=== PATIENT | female | born 1970 | race American Indian/Alaskan Native ===

== ENCOUNTER 2017-03-08 13:47 | Emergency (ER) | payer SELFPAY ==
--- NOTE | 2017-03-08 15:18 | Emergency Department Report ---
Entered by CHRISTINA SALCIDO, acting as scribe for TAMIKA ASHRAF NP. Chief Complaint: Abdominal Pain Stated Complaint: ABD PAIN Time Seen by Provider: 03/08/17 15:12 - HPI History of Present Illness: 47 y/o non-toxic, non ill-appearing female in no acute distress presents to ED c /o RLQ abdominal pain since yesterday/ Describes her pain as sharp in quality, unsure if she is . Also reports missed menses for several months. Denies N/V/D, constipation, fever, chills, vaginal bleeding. Notes Hx of gestational induced hypertension. - ROS Review of Systems: + RLQ abdominal pain, missed menses - N/V/D, fever, chills, constipation - vaginal bleeding - Exam Vital Signs: Vital Signs 03/08/17 15:06 Temperature 98.4 F Pulse Rate 105 H Respiratory 20 Rate Blood Pressure 200/109 O2 Sat by Pulse 100 Oximetry Physical Exam: Abdomen: RLQ pain, no point tenderness, negative McBurney's point tenderness, negative yuan's sign, non-distended, bowel sounds normal x 4 MSE screening note: Focused history and physical exam performed. Due to findings the following was ordered: CBC, CMP, lipase, amylase, UA, hcg quantitative serum ED Disposition for MSE Condition: Stable Instructions: Abdominal Pain (ED) This documentation as recorded by the scribe,CHRISTINA SALCIDO,accurately reflects the service I personally performed and the decisions made by PASCALE oliveros MARTIN, ABDIRAHMAN.
[2017-03-08 15:36] LABS: Basophils % (Auto) 0.4 % (0.0-1.8); Eosinophils % (Auto) 1.1 % (0.0-4.3); Hematocrit 38.3 % (30.3-42.9); Hemoglobin 12.5 gm/dl (10.1-14.3); Mean Corpuscular HGB Conc 33 % (30-34); Mean Corpuscular Hemoglobin 28 pg (28-32); Mean Corpuscular Volume 86 fl (79-97); Platelet Count 271 K/mm3 (140-440); Red Blood Count 4.44 M/mm3 (3.65-5.03); Red Cell Distribution Width 13.6 % (13.2-15.2); White Blood Count 8.2 K/mm3 (4.5-11.0)
[2017-03-08 16:16] LABS: Alanine Aminotransferase 12 units/L (7-56); Albumin/Globulin Ratio 0.8 %; Alkaline Phosphatase 124 units/L (35-129); Amylase 50 units/L (27-131); BUN/Creatinine Ratio 18.88; Blood Urea Nitrogen 17 mg/dL (7-17); Carbon Dioxide 24 mmol/L (22-30); Glucose 278 mg/dL (65-100); Lipase 22 units/L (13-60); Total Protein 8.8 g/dL (6.3-8.2)
[2017-03-08 16:17] LABS: Anion Gap 21 mmol/L; Chloride 93.7 mmol/L (98-107); Potassium 4.9 mmol/L (3.6-5.0); Sodium 134 mmol/L (137-145)
[2017-03-08 19:53] LABS: Bilirubin,Urine NEG (Negative); Blood,Urine SM (Negative); Ketones,Urine NEG (Negative); Leukocyte Esterase,Urine MOD (Negative); Nitrite,Urine NEG (Negative); Urobilinogen,Urine < 2.0 mg/dL (<2.0)
[2017-03-08] MEDS ORDERED: MORPHINE IV ONE (19:57)
--- NOTE | 2017-03-08 19:59 | Emergency Department Report ---
HPI - General Chief Complaint: Abdominal Pain Time Seen by Provider: 03/08/17 19:32 - HPI HPI: This is a 47-year-old Afro-[place] female presents the emergency department with a 2 day history of lower abdominal discomfort. It is associated with some mild dysuria. She also has been having some nausea without vomiting. She took some Tylenol PM last night for her discomfort and so she could fall asleep but otherwise she is not taken anything else that has provided any relief. She denies any back pain, fever, vaginal bleeding or discharge. She also presents with very elevated blood pressure. She says she only has a history of hypertension when she was which has been many years in the past. She does not currently have a primary care doctor. She denies tobacco smoking. No recent travel or sick contacts at home. ED Past Medical Hx - Past Medical History Previous Medical History?: Yes Hx Hypertension: Yes (during ) - Surgical History Past Surgical History?: No - Social History Smoking Status: Current Every Day Smoker Substance Use Type: Alcohol - Medications Home Medications: Home Medications Medication Instructions Recorded Confirmed Last Taken Type HYDROcodone/APAP 5-325 [[place] 1 each PO Q6HR PRN #10 tablet 03/08/17 Unknown Rx 5/325] Nitrofurantoin [place]/M-Cryst 100 mg PO Q12HR #14 capsule 03/08/17 Unknown Rx [Macrobid CAP] amLODIPine [Norvasc] 5 mg PO DAILY #30 tab 03/08/17 Unknown Rx ED Review of Systems ROS: Stated complaint: ABD PAIN Other details as noted in HPI Comment: All other systems reviewed and negative Constitutional: denies: chills, fever Eyes: denies: eye pain, eye discharge, vision change ENT: denies: ear pain, throat pain Respiratory: denies: cough, shortness of breath, wheezing Cardiovascular: denies: chest pain, palpitations Gastrointestinal: abdominal pain, nausea. denies: vomiting Genitourinary: dysuria. denies: hematuria, discharge Musculoskeletal: denies: back pain, joint swelling, arthralgia Skin: denies: rash, lesions Neurological: denies: headache, weakness, paresthesias Physical Exam - Physical Exam Vital Signs: Vital Signs 03/08/17 15:06 Temperature 98.4 F Pulse Rate 105 H Respiratory 20 Rate Blood Pressure 200/109 O2 Sat by Pulse 100 Oximetry Physical Exam: GENERAL: The patient is well-developed well-nourished. HEENT: Normocephalic. Atraumatic. Extraocular motions are intact. Patient has moist mucous membranes. Pupils equal reactive to light bilaterally. NECK: Supple. Trachea is midline. CHEST/LUNGS: Clear to auscultation. There is no respiratory distress noted. HEART/CARDIOVASCULAR: Regular. There is no tachycardia. There is no gallop rub or murmur. ABDOMEN: Abdomen is soft. Unable to reproduce patient's discomfort to palpation. Patient has normal bowel sounds. No guarding or rebound tenderness. No peritoneal signs. There is no abdominal distention. SKIN: Skin is warm and dry. NEURO: The patient is awake, alert, and oriented. The patient is cooperative. The patient has no focal neurologic deficits. The patient has normal speech. MUSCULOSKELETAL: There is no tenderness or deformity. There is no limitation range of motion. There is no evidence of acute injury. ED Course Vital Signs 03/08/17 15:06 Temperature 98.4 F Pulse Rate 105 H Respiratory 20 Rate Blood Pressure 200/109 O2 Sat by Pulse 100 Oximetry ED Medical Decision Making - Lab Data Result diagrams: 03/08/17 15:21 03/08/17 15:21 - Radiology Data Radiology results: report reviewed, image reviewed interpreted by me: Abdominal x-ray shows some nonspecific nonobstructive bowel gas. CT of the abdomen and pelvis with IV contrast shows thickened enhancing bladder wall. Thickened enhancing right ureter. These findings are most likely due to cystitis/ureteritis. Diffuse fatty infiltration of the liver and hepatomegaly. Mild retroperitoneal adenopathy that may be reactive in nature. - Medical Decision Making 47-year-old female presents with some lower abdominal discomfort and some dysuria. Patient doesn't fact have a urinary tract infection but with only 40 white blood cells in the urine, I did not feel that was necessarily the source of her discomfort. CT of the abdomen and pelvis with IV contrast however does show cystitis. Incidentally there is some fatty infiltration of the liver and some hepatomegaly. There is some hyperglycemia on labs but the patient does not appear to be in DKA or HHNK. She also presents with some hypertensive urgency that came down with some pain management. Patient be started on low- dose amlodipine and given referrals for primary care. Otherwise vitals up in stable including being afebrile. Patient does not appear to be in any acute distress. She'll be discharged home but encouraged to follow-up with the physicians and return to the ER with any worsening or symptoms or any acute distress. - Differential Diagnosis hypertensive urgency, UTI, fibroids, colitis Critical care attestation.: If time is entered above; I have spent that time in minutes in the direct care of this critically ill patient, excluding procedure time. ED Disposition Clinical Impression: Hypertensive urgency, Hyperglycemia Abdominal pain Qualifiers: Abdominal location: left lower quadrant Qualified Code(s): R10.32 - Left lower quadrant pain UTI (urinary tract infection) Qualifiers: Urinary tract infection type: acute cystitis Hematuria presence: without hematuria Qualified Code(s): N30.00 - Acute cystitis without hematuria Disposition: DISCHARGED TO HOME OR SELFCARE Is pt being admited?: No Condition: Stable Instructions: Abdominal Pain (ED), Hypertension (ED), Urinary Tract Infection in Women (ED), Hyperglycemia, Non-Diabetic (ED) Additional Instructions: Please follow-up with a primary care physician as soon as possible. Return to the emergency department with any worsening of your symptoms or any acute distress. I have started you on a blood pressure medication called amlodipine to be taken once daily. Try to stay away from foods that are high in salt and caffeinated products to help with her blood pressure. He'll blood sugar is elevated today as well with concern for diabetes. You will also need to see a primary care doctor regarding this. Try to stay away from foods that are high in sugar, carbohydrates and starches. Return to the emergency department with any worsening of your symptoms or any acute distress.You've been prescribed a medication that is sedating. Therefore this medication cannot be mixed with alcohol, or taken prior to driving, working, or being responsible for children. Prescriptions: amLODIPine [Norvasc] 5 mg PO DAILY #30 tab HYDROcodone/APAP 5-325 [[place] 5/325] 1 each PO Q6HR PRN #10 tablet PRN Reason: Pain Nitrofurantoin [place]/M-Cryst [Macrobid CAP] 100 mg PO Q12HR #14 capsule Referrals: PRIMARY CARE, [Primary Care Provider] - 3-5 Days WHIT CAGLE MD [Staff Physician] - 3-5 Days OSKAR FRAGOSO MD [Staff Physician] - 3-5 Days [facility] [Outside] - 3-5 Days Time of Disposition: 23:37
[2017-03-08] MEDS ORDERED: MACROBID PO ONE (20:28)
--- NOTE | 2017-03-08 22:42 | Cat Scan Report ---
FINAL REPORT EXAM: CT ABDOMEN PELVIS W CON HISTORY: Abd pain TECHNIQUE: Helical CT scan through the abdomen and pelvis during intravenous injection of iodinated contrast. Images are reconstructed in the sagittal and coronal planes. Oral contrast was not given. PRIORS: None. FINDINGS: The lung bases are clear. There is diffuse low-attenuation of the liver consistent with fatty infiltration. The liver is enlarged measuring 21.4 cm in craniocaudal dimension. There is increased focal fatty infiltration near the falciform ligament. The gallbladder, pancreas, spleen and adrenal glands appear normal. The kidneys appear normal. The bladder is almost empty. The bladder wall appears thickened and mucosa of the bladder enhances with contrast. The wall of the right renal pelvis and ureter are thickened and have mild contrast enhancement. There is no hydronephrosis. Otherwise, the kidneys appear normal. The uterus and ovaries appear grossly. There are numerous mildly enlarged retroperitoneal at lymph nodes. For example, a left iliac lymph node measures 2.0 x 1.1 x 0.9 cm, series 4, image 48 and series 201, image 69. There are numerous other mildly enlarged retroperitoneal lymph nodes. The stomach appears grossly within normal limits. There are no abnormally dilated loops of bowel or acute inflammatory changes. A normal-appearing appendix is identified. There is atherosclerotic calcification of the abdominal aorta and iliac arteries without aneurysm. The bones and subcutaneous soft tissues are unremarkable for age. There is a 1.6 x 0.5 cm left vulvar cyst consistent with a Bartholin cyst. IMPRESSION: 1. Thickened enhancing bladder wall. Thickened enhancing right ureter. These findings are most likely due to cystitis/ureteritis. 2. Diffuse fatty infiltration of the liver and hepatomegaly. 3. Mild retroperitoneal adenopathy. This may be reactive in nature. 4. Atherosclerosis 5. Small left vulvar cyst consistent with a Bartholin cyst.
[2017-03-08 23:28] VITALS: BP 156/83
--- NOTE | 2017-03-09 08:58 | XRay Report ---
ABDOMEN RADIOGRAPHS INDICATION: Abdominal pain. COMPARISON: None similar at this institution. FINDINGS: Frontal abdominal radiographs demonstrate nonobstructive bowel gas pattern. No focal suspicious calcifications, pneumatosis or pneumoperitoneum. Hepatomegaly suspected. Clear visualized lung bases. Mild lower lumbar degenerative changes possible. CONCLUSION: Possible hepatomegaly without other acute abdominal radiographic abnormality, as described. Please correlate. Thank you for the opportunity to participate in this patient's care.
== END 2017-03-09 00:24 | disposition home or self-care (01) ==
LOC: ED 13:47
DX: N30.00 Acute cystitis without hematuria (principal); I16.0 Hypertensive urgency; E11.65 Type 2 diabetes mellitus with hyperglycemia; R10.32 Left lower quadrant pain; F17.200 Nicotine dependence, unspecified, uncomplicated
CPT/HCPCS: 36415; 74020; 74177; 80053; 81001; 82150; 82962; 83690; 84703; 85025; 96374; 99285; J2270; Q9967

== ENCOUNTER 2017-05-25 02:16 | Emergency (ER) | payer SELFPAY ==
[2017-05-25 07:38] LABS: Bacteria,Urine 1+ /HPF (Negative); Bilirubin,Urine NEG (Negative); Blood,Urine SM (Negative); Ketones,Urine NEG (Negative); Leukocyte Esterase,Urine SM (Negative); Mucus,Urine FEW /HPF; Nitrite,Urine NEG (Negative); Urobilinogen,Urine < 2.0 mg/dL (<2.0)
[2017-05-25] MEDS ORDERED: MOTRIN PO ONE (08:41)
--- NOTE | 2017-05-25 08:44 | Emergency Department Report ---
ED Lower Extremity HPI - General Chief Complaint: Extremity Injury, Lower Stated Complaint: TWISTED RT ANKLE Time Seen by Provider: 05/25/17 08:39 Source: patient Mode of arrival: Wheelchair Limitations: No Limitations - History of Present Illness Initial Comments: 47-year-old female past medical history diabetes, hypertension presents with complaint of right foot pain since yesterday. States she was stretching her right foot and ankle and subsequently developed discomfort in her right mid foot. Denies any direct trauma. Patient also states that she has not taken her blood pressure medicine in over 1 month. Denies any blurry vision chest pain shortness of breath abdominal pain nausea vomiting headache palpitations. Patient is ambulatory. Denies any fevers or chills MD Complaint: foot injury Onset/Timin -: days(s) Injury: Foot: Right Type of Injury: hyperextension Place: home Severity: moderate Severity scale (0 -10): 4 Improves With: immobilization Worsens With: weight bearing Associated Symptoms: ambulatory - Related Data Previous Rx's Medication Instructions Recorded Last Taken Type HYDROcodone/APAP 5-325 [[place] 1 each PO Q6HR PRN #10 tablet 03/08/17 Unknown Rx 5/325] Nitrofurantoin [place]/M-Cryst 100 mg PO Q12HR #14 capsule 03/08/17 Unknown Rx [Macrobid CAP] amLODIPine [Norvasc] 5 mg PO DAILY #30 tab 03/08/17 Unknown Rx Ibuprofen [Motrin] 600 mg PO Q8H PRN #30 tablet 05/25/17 Unknown Rx amLODIPine [Norvasc] 10 mg PO DAILY #30 tab 05/25/17 Unknown Rx Allergies Allergy/AdvReac Type Severity Reaction Status Date / Time No Known Allergies Allergy Verified 05/25/17 02:57 ED Review of Systems ROS: Stated complaint: TWISTED RT ANKLE Other details as noted in HPI Constitutional: denies: chills, fever Eyes: denies: eye pain, eye discharge, vision change ENT: denies: ear pain, throat pain Respiratory: denies: cough, shortness of breath, wheezing Cardiovascular: denies: chest pain, palpitations Endocrine: no symptoms reported Gastrointestinal: denies: abdominal pain, nausea, diarrhea Genitourinary: denies: urgency, dysuria, discharge Musculoskeletal: as per HPI. denies: back pain, joint swelling, arthralgia Skin: denies: rash, lesions Neurological: denies: headache, weakness, paresthesias Psychiatric: denies: anxiety, depression Hematological/Lymphatic: denies: easy bleeding, easy bruising ED Past Medical Hx - Past Medical History Previous Medical History?: Yes Hx Hypertension: Yes (ran out of meds) Hx Diabetes: Yes - Surgical History Past Surgical History?: No - Social History Smoking Status: Current Every Day Smoker Substance Use Type: None - Medications Home Medications: Home Medications Medication Instructions Recorded Confirmed Last Taken Type HYDROcodone/APAP 5-325 [[place] 1 each PO Q6HR PRN #10 tablet 03/08/17 Unknown Rx 5/325] Nitrofurantoin [place]/M-Cryst 100 mg PO Q12HR #14 capsule 03/08/17 Unknown Rx [Macrobid CAP] amLODIPine [Norvasc] 5 mg PO DAILY #30 tab 03/08/17 Unknown Rx Ibuprofen [Motrin] 600 mg PO Q8H PRN #30 tablet 05/25/17 Unknown Rx amLODIPine [Norvasc] 10 mg PO DAILY #30 tab 05/25/17 Unknown Rx ED Physical Exam - General Limitations: No Limitations General appearance: alert, in no apparent distress - Head Head exam: Present: atraumatic, normocephalic - Eye Eye exam: Present: normal appearance, PERRL, EOMI - ENT ENT exam: Present: mucous membranes moist - Neck Neck exam: Present: normal inspection - Respiratory Respiratory exam: Present: normal lung sounds bilaterally. Absent: respiratory distress - Cardiovascular Cardiovascular Exam: Present: regular rate, normal rhythm. Absent: systolic murmur, diastolic murmur, rubs, gallop - GI/Abdominal GI/Abdominal exam: Present: soft, normal bowel sounds - Extremities Exam Extremities exam: Present: normal inspection - Expanded Lower Extremity Exam Right Hip exam: Present: normal inspection, full ROM Upper Leg exam: Present: normal inspection, full ROM Knee exam: Present: normal inspection, full ROM Lower Leg exam: Present: normal inspection, full ROM Ankle exam: Present: normal inspection, full ROM Foot/Toe exam: Present: normal inspection, full ROM (dorsiflexion plantar flexion inversion and eversion are intact), tenderness (patient has some tenderness on the dorsal side of foot visible cellulitis abscess or erythema) Neuro vascular tendon exam: Present: no vascular compromise (distal dorsalis pedis and posterior tibial pulses intact) Gait: Positive: observed and normal - Back Exam Back exam: Present: normal inspection - Neurological Exam Neurological exam: Present: alert, oriented X3 - Psychiatric Psychiatric exam: Present: normal affect, normal mood - Skin Skin exam: Present: warm, dry, intact, normal color. Absent: rash ED Course Vital Signs 05/25/17 05/25/17 05/25/17 02:49 08:50 09:07 Temperature 98.0 F 98.6 F Pulse Rate 101 H 98 H 98 H Respiratory 18 20 Rate Blood Pressure 164/96 214/108 Blood Pressure 182/105 [Right] O2 Sat by Pulse 98 100 Oximetry ED Lower Extremity MDM - Medical Decision Making A/P: Asymptomatic hypertension, need for medication refill, foot sprain 1-Brendan wrap, R ICE therapy x-ray unremarkable, patient is ambulatory. No neurovascular deficits and foot distal dorsalis pedis pulse intact no signs of cellulitis or infection and foot no swelling distally 2-Motrin when necessary 3-refill on amlodipine 4-patient referred to podiatry and primary care Critical care attestation.: If time is entered above; I have spent that time in minutes in the direct care of this critically ill patient, excluding procedure time. ED Disposition Clinical Impression: Asymptomatic hypertension Sprain of foot, right Qualifiers: Encounter type: initial encounter Qualified Code(s): S93.601A - Unspecified sprain of right foot, initial encounter Disposition: TO HOME OR SELFCARE Is pt being admited?: No Does the pt Need Aspirin: No Condition: Stable Instructions: Hypertension (ED), Foot Sprain (ED), RICE Therapy (ED) Prescriptions: amLODIPine [Norvasc] 10 mg PO DAILY #30 tab Ibuprofen [Motrin] 600 mg PO Q8H PRN #30 tablet PRN Reason: Pain Referrals: ARACELIS TYLER DPM [Staff Physician] - 3-5 Days OSKAR FRAGOSO MD [Staff Physician] - 3-5 Days Forms: Work/School Release Form(ED) Time of Disposition: 10:08
[2017-05-25] MEDS ORDERED: NORVASC PO ONE (08:55)
--- NOTE | 2017-05-25 08:59 | XRay Report ---
RIGHT FOOT: History: Pain and swelling The bony architecture is intact. Bony alignment is normal. No soft tissue abnormalities are seen. The joint spaces appear preserved. IMPRESSION: Normal right foot.
[2017-05-25 09:08] VITALS: BP 214/108
== END 2017-05-25 10:23 | disposition home or self-care (01) ==
LOC: ED 02:16
DX: S93.601A Unspecified sprain of right foot, initial encounter (principal); I10 Essential (primary) hypertension; E11.9 Type 2 diabetes mellitus without complications; F17.200 Nicotine dependence, unspecified, uncomplicated; X58.XXXA Exposure to other specified factors, initial encounter; Y93.89 Activity, other specified; Y99.8 Other external cause status; Y92.098 Other place in other non-institutional residence as the place of occurrence of the external cause
CPT/HCPCS: 81001; 81025; 99284